=== PATIENT | male | born 1950 | race Hispanic/Latino ===

== ENCOUNTER 2022-05-14 12:03 | Outpatient (RCR) | payer OTHER | END 2022-05-23 | LOC: RESP 12:03 | PROVIDERS: ATTEND Internal Medicine | DX: J84.112 Idiopathic pulmonary fibrosis (principal) | CPT/HCPCS: 94799 ==

== ENCOUNTER 2022-05-26 16:00 | Outpatient (RCR) | payer OTHER | END 2022-06-23 | LOC: RESP 16:00 | PROVIDERS: ATTEND Internal Medicine | DX: J84.112 Idiopathic pulmonary fibrosis (principal) | CPT/HCPCS: 94626 ×4; G0238 ×4 ==

== ENCOUNTER 2022-06-30 13:00 | Outpatient (RCR) | payer OTHER | END 2022-07-23 | LOC: RESP 13:00 | PROVIDERS: ATTEND Internal Medicine | DX: J84.112 Idiopathic pulmonary fibrosis (principal) | CPT/HCPCS: 94626; G0238 ==